=== PATIENT | female | born 1970 | race Caucasian/White ===

== ENCOUNTER 2018-07-13 09:56 | Outpatient (CLI) | payer OTHER ==
--- NOTE | 2018-07-13 12:53 | MRI ---
MRI OF THE RIGHT SHOULDER WITHOUT CONTRAST: INDICATION: History of right shoulder pain since injury. The patient hit right shoulder on a countertop. COMPARISON: Comparisons are made with a radiograph dated 05/17/2018 performed at [facility]. FINDINGS: The rotator cuff is intact. There is mild supraspinatus tendinosis. There is mild AC joint osteoart hrosis. There is a type II acromion. No muscular atrophy is evident. No enlarged lymph nodes are n oted. The biceps tendon is located. The biceps anchor complex appears intact. The anterior inferio r glenohumeral labral ligamentous complex is intact. The glenohumeral articular surface is normal-ap pearing. No paralabral cyst is demonstrated. A very small amount of fluid is seen within the subacr omial subdeltoid bursa. IMPRESSION: 1. A mild amount of fluid in the subacromial subdeltoid bursa can be seen with a mild bursitis. 2. Mild tendinosis of the supraspinatus without evidence of full-thickness rotator cuff tear. 3. Mild acromioclavicular joint osteoarthrosis. POS: [facility]
== END 2018-07-13 09:57 | disposition home or self-care (01) ==
LOC: SCSMRI 09:56
PROVIDERS: ATTEND Family Medicine
DX: S49.91XD Unspecified injury of right shoulder and upper arm, subsequent encounter (principal); M19.011 Primary osteoarthritis, right shoulder; M75.91 Shoulder lesion, unspecified, right shoulder; M75.51 Bursitis of right shoulder